=== PATIENT | male | born 1980 | race Caucasian/White ===

== ENCOUNTER → 2024-07-05 | Outpatient (CLI) | payer SELFPAY ==
--- NOTE | 2024-07-05 16:40 | RAD_ITS ---
INDICATION: Erythematous right ring finger EXAMINATION/TECHNIQUE: X-RAY - RIGHT HAND XR Fingers 3 VIEWS COMPARISON: FINDINGS: SOFT TISSUES: There is soft tissue swelling of fourth finger. No radiopaque foreign body. BONES/JOINTS: No acute fracture or subluxation.. Normal alignment. Narrowing at the distal interphalangeal joint.. No sclerotic or destructive changes observed. RAD/Finger(s) Min 2 Views IMPRESSION: Narrowing at the distal interphalangeal joint of fourth finger with soft tissue edema. Electronically Signed: Charles Wang DO at 17:11 EDT Reading Location ID and State: [facility] / [place] Tel [phone], Service support ,
== END | disposition home or self-care (01) ==
PROVIDERS: PCP Family Medicine; Referring Provider Physician Assistant Surgical; Visit Provider Physician Assistant Surgical
DX: S69.91XA Unspecified injury of right wrist, hand and finger(s), initial encounter (principal); X58.XXXA Exposure to other specified factors, initial encounter
CPT/HCPCS: 73140

== ENCOUNTER → 2025-08-12 | Outpatient (CLI) | payer SELFPAY ==
--- OUTSIDE RECORDS SUMMARY | 2025-08-12 16:39 | XMS RPT_ITS | CCD ---
Author Organization [facility] Care Team Providers Care Insurance Verification Representative Name Role Phone Zhang SAENZ, Corbin Crisostomo Unavailable Corbin Holcomb MD Unavailable Clif CHIRINOSN, Kiersten Unavailable Cassidy COSBY, Wes Duarte Unavailable Adrian SANIPRACTIC PHYSICIAN, Laura Unavailable Unavailable Martjeni SANIPRACTIC PHYSICIAN, Cherry Unavailable Unavailable David Brady Attending Unavailable David Brady Referring Unavailable Corbin Holcomb Primary Care Unavailable David Brady Attending Unavailable Problems Active Problems Problem Classification Problem Date Documented Da te Episodic/Chronic Influenza (4 sources) Influenza due to Influenza B virus; Translations: [Influenza due to other identified influenza virus with other respiratory manifestations] 11-24-2023 Episodic Other connective tissue disease (6 sources) Muscle pain; Translations: [Myalgia, unspecified site] 11-24-2023 Episodic Other injuries and conditions due to external causes (1 source) Unspecified injury of right wrist, hand and finger(s), initial encounter; Translations: [Unspecified injury of right wrist, hand and finger(s), initial encounter] Onset: 07-29-2024 Episodic Other lower respiratory disease (6 sources) Cough; Translations: [Cough] 11-24-2023 Episodic Other upper respiratory disease (6 sources) Sinusitis; Translations: [Allergic rhinitis, unspecified] 07-14-2022 Chronic Other upper respiratory disease (6 sources) Seasonal allergic rhinitis; Translations: [Other seasonal allergic rhinitis] 07-14-2022 Chronic Viral infection (6 sources) Disease caused by 2019-nCoV; Translations: [COVID-19] 11-24-2023 Episodic Past or Other Problems Problem Classification Problem Date Documented Da te Episodic/Chronic Unclassified (3 sources) Cold Symptoms - Symptoms include nasal congestion, runny nose, ear pain, scratchy throat, dry cough, productive cough, fever (highest 103 felicita nightlast night 102), chills, general malaise and headache. The onset was gradual 6 day(s) ago. The symptoms occur constantly. The patient describes this as moderate in severity and unchanged. Current treatment includes non-prescription cold medication (nyquil), acetaminophen and NSAIDs (during the night 2-3 am). Risk factors do not include smoking. The patient has been exposed to an individual with an upper respiratory infection (son was sick last week). Patient denies history of seasonal allergies, recurrent sinusitis, recurrent strep pharyngitis, asthma, tonsillectomy or recurrent ear infections. 11-24-2023 Unclassified (3 sources) Cold Symptoms - Symptoms include sneezing, nasal congestion, runny nose, ear pain, ear fullness, sore throat, productive cough, fever (100), chills and general malaise, but do not include non-purulent sputum, purulent discharge, scratchy throat, hoarseness, dry cough, wheezing, headache or facial pain. The onset was gradual 4 day(s) ago. The symptoms occur constantly. The patient describes this as moderate in severity and worsening. Current treatment includes NSAIDs. Risk factors do not include child in daycare or smoking. The patient has not been exposed to an individual with a cough, an individual with an upper respiratory infection, an individual with similar symptoms, an individual with strep or secondhand smoke. Patient denies history of seasonal allergies, recurrent sinusitis, recurrent strep pharyngitis, asthma, tonsillectomy or recurrent ear infections. 07-14-2022 Unclassified (3 sources) Headache - The onset of the headache has been sudden and has been occurring in a persistent pattern for 6 days. The course has been recurrent. The headache is characterized as moderate. The headache is described as being located in the temporal area (right sided). The symptoms are aggravated by tension/nervous strain, but not by fatigue, pressure over temporal arteries or reading. There has been no associated blurring of vision, confusion, ear pain, eye congestion, fever or flashing lights. 02-15-2016 Results Test Name Value Interpretation Reference Range Facility Finger(s) Min 2 Viewson 06-23 Finger(s) Min 2 Views [facility] [address] [place], [place] [id number] Finger(s) Min 2 Views MR#: [id number] Acct: [id number] Name: NATTY DALY Rep #: [id number] : 1980 M 44 From: Charles Wang DO PCP: Dr. Corbin Holcomb MD Status: REG CLI Study: Finger(s) Min 2 Views Date of Exam: 07/05/24 Exam# [id number] Ordering Dr: David Granados [place] [id number] INDICATION: Erythematous right ring finger EXAMINATION/TECHNIQU E: X-RAY - RIGHT HAND XR Fingers 3 VIEWS COMPARISON: ____ FINDINGS: SOFT TISSUES: There is soft tissue swelling of fourth finger. No radiopaque foreign body. BONES/JOINTS: No acute fracture or subluxation.. Normal alignment. Narrowing at the distal interphalangeal joint.. No sclerotic or destructive changes observed. RAD/Finger(s) Min 2 Views IMPRESSION: Narrowing at the distal interphalangeal joint of fourth finger with soft tissue edema. Electronically Signed: Charles Wang DO at 17:11 EDT Reading Location ID and State: [address] [place] [address] Tel [phone], Service support , CC: ARTHUR Sweeney; Dr. Corbin Holcomb MD Security Threat Analyst: Signed Normal [facility] Urgent Care Visit Reporton 0 07-05-2024 Urgent Care Visit Report [facility] [address], [address] [place] [address] OFFICE VISIT Date of Service: 07/05/24 MR#: [id number] Acct: [id number] Name: NATTY DALY Rep #: [id number] : 1980 Provider: ARTHUR Sweeney Age/Sex: 44/M Location: [facility] Status: Signed Intake Vital Signs 07/05/24 16:11 Height 5 ft 9 in Weight: 188 lb 2 oz BMI 27.8 BP 104/64 Blood Pressure Location Lt brachial Position Sitting Respiration 15 Pulse 60 Pulse Source NIBP Temp 98.4 F Temp Source Temporal Pulse Oximetry (%) 98 Oxygen Delivery Method room air Intake Visit Reasons: RED R 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 denies injury/bite/puncture /drainage. entire 4th finger purple and slightly swollen. full ROM with "tightness". hx old injury to same finger requiring fusion but pt states prior to 2 days ago had normal coloring/size etc. PFSH Medical History (Updated 07/05/24 @ 16:58 by ARTHUR Matute) Partial traumatic amputation of finger through phalanx Environmental allergies Surgical History (Updated 07/05/24 @ 16:15 by Yamilex Plummer) History of hand surgery Social History (Updated 07/05/24 @ 16:15 by Yamilex Plummer) Smoking Status: Never smoker alcohol intake: never substance use type: does not use HPI HPI Chief Complaint: right 4th finger Details: NATTY DALY, is a 44 M who presents to the office today for concern of possible infection to the right ring finger. Patient states that over the past several days he has had discoloration of the right ring finger despite having no known injuries. Patient does have a remote injury to the right little, ring and little fingers with amputation of the right little finger beyond the DIP and most of the right ring finger nailbed missing. He does have a fusion of the DIP on the right ring finger. He states examining his finger looking for a splinter however has not found anything abnormal other than the discoloration. He notes no current pain however does state that when he first noticed the discoloration he had some minor pain around the DIP joint. No fever, chills, sweats. No nausea, vomiting, diarrhea. No other associated symptoms or alleviating/aggravat ing factors. ROS Const Constitutional: No other (6 system ROS completed with pertinent findings in the HPI otherwise normal.) Exam Const General: cooperative and healthy appearing Skin General: no rashes or lesions noted Neuro General: patient alert Extrem General: capillary refill normal Other: Discoloration of right ring finger appears to be somewhat more brown on the dorsal aspect with no specific erythema, warmth or soft tissue swelling. Appropriate capillary refill and sensation to light touch distally. Patient is missing most of his nailbed along with missing a portion of his right little finger beyond the DIP. No extending erythema or lymphadenopathy. Psych Appearance: grossly normal Mental Status: mental status grossly normal Coding Level of Care Code Off vis,new,level 2 Diagnoses Injury of right ring finger S69.91XA Superficial injury of right ring finger with infection S60.944A; L08.9 Assessment and Plan Assessment and Plan (1) Injury of right ring finger: Status: Acute (2) Superficial injury of right ring finger with infection: Status: Acute Orders: Orders Finger(s) Min 2 Views Today S69.91XA - Unspecified injury of right wrist, hand and finger(s), initial encounter Plan X-ray of the right ring finger read and interpreted by myself and no acute osseous abnormalities or signs of osteomyelitis. Awaiting radiology interpretation at time of patient discharge. Bactrim as prescribed today. Encouraged to get plenty of rest, drink lots of clear liquids, and use Tylenol or Ibuprofen (unless contraindicated) for fever and comfort. Patient also educated on other symptomatic management techniques. To be seen in 7-10 days with orthopedics if no improvement; sooner if worsening of symptoms. Patient advised of potential red flags and when appropriate to report to the ED. Patient verbalized understanding and agreement with all the above. Clinical Quality Measures Falls Risk Screening/Assistive Devices Have you fallen in the past year?: No 07/05/24 170 Date David Dowling Signature: Date (if appli (more content not included)... Normal [facility] Laboratory - Microbiology an d Antimicrobial susceptibilityon 11-24-2023 FLUAV Ag IA Ql (Throat) Positive Abnormal [employer], [employer]. FLUAV Ag IA Ql (Throat) Negative Normal [employer], [employer]. SARS-CoV-2 (COVID-19) RNA ALKA+probe Ql (Unsp spec) Negative Normal [employer], [employer]. Laboratory - Microbiology an d Antimicrobial susceptibilityon 07-14-2022 FLUAV Ag IA Ql (Throat) Negative Normal [place] [employer] SARS-CoV-2 (COVID-19) RNA ALKA+probe Ql (Unsp spec) Positive Normal [employer], [employer]. Laboratory - Hematology and Cell countson 07-12-2018 Basophils (Bld) [#/Vol] 10 {Cells}/uL Normal 0 - 200 {Cells}/uL [place] [employer], [employer]. Basophils/100 WBC (Bld) 0 % Normal 0 - 1 % [place] [employer] Eosinophils (Bld) [#/Vol] 50 {Cells}/uL Normal 15 - 500 {Cells}/uL [place] [employer], [employer].; [employer], [employer]. Eosinophils/100 WBC (Bld) 1 % Normal 0 - 4 % [place] [employer], [employer]. Erythrocyte distribution width (RBC) [Ratio] 13.6 % Normal 11.0 - 15.0 % [employer], [employer].; [employer] ESR (Bld) [Velocity] 6 mm/h Normal 0 - 15 mm/h [facility] [employer], [employer].; [employer] Hematocrit (Bld) [Volume fraction] 34.9 % Abnormal 38.5 - 50.0 % [place] [employer] Hemoglobin (Bld) [Mass/Vol] 12.7 g/dL Abnormal 13.2 - 17.1 g/dL [facility], [facility].; [place] [employer], [facility]. Lymphocytes (Bld) [#/Vol] 1590 {Cells}/uL Normal 850 - 3900 {Cells}/uL [facility], [facility].; [facility] [employer] Lymphocytes/100 WBC (Bld) 47 % Normal 12 - 47 % [facility], [facility].; [facility], [facility]. MCH (RBC) [Entitic mass] 33.7 pg Abnormal 27.0 - 33.0 PG [facility], [facility].; [place] [employer], [facility]. MCHC (RBC) [Mass/Vol] 36.3 g/dL Abnormal 32.0 - 36.0 g/dL [facility], [facility].; [place] [employer] MCV (RBC) [Entitic vol] 92.9 fL Normal 80.0 - 100.0 fL [facility], [facility].; [facility], [facility]. Monocytes (Bld) [#/Vol] 310 {Cells}/uL Normal 200 - 950 {Cells}/uL [facility], [facility].; [place] [employer] Monocytes/100 WBC (Bld) 9 % Normal 4 - 12 % [facility], [facility].; [place] [employer] Neutrophils (Bld) [#/Vol] 1490 {Cells}/uL Abnormal 1500 - 7800 {Cells}/uL [facility] [employer] [place] [employer] Neutrophils/100 WBC (Bld) 43 % Normal 40 - 75 % [facility], [facility].; [place] [employer] Platelet mean volume (Bld) [Entitic vol] 10.6 fL Normal 7.5 - 12.5 fL [facility], [facility].; [place] [employer] Platelets (Bld) [#/Vol] 121 10*3/uL Abnormal 140 - 400 10*3/uL [facility] [employer] [place] [employer] RBC (Bld) [#/Vol] 3.76 10*6/uL Abnormal 4.20 - 5.8 0 10*6/uL [facility] [employer] [place] [employer] WBC (Bld) [#/Vol] 3.5 10*3/uL Abnormal 3.8 - 10.8 10*3/uL [facility].; [facility], [facility] Vital Signs Date Time Vital Sign Value Performing Clinician Facility 11-24-2023 09:07-0500 Body height 175.26 cm Laura Campbell LPN [facility], [facility].; [facility]. 11-24-2023 09:07-0500 Body mass index (BMI) [Ratio] 27.02 kg/m2 Laura Campbell LPN [facility].; [facility], [facility]. 11-24-2023 09:07-0500 Body surface area Derived from formula 1.99 m2 Laura Campbell LPN [facility], [facility].; [facility], [facility]. 11-24-2023 09:07-0500 Body temperature 101.1 [degF] Laura Campbell LPN [facility], [facility].; [place] [employer] [facility], [facility]. Comment on above: Method: Tympanic 11-24-2023 09:07-0500 Body weight 83.01 kg Laura Campbell LPN [facility].; [place] [employer], [facility]. 11-24-2023 09:07-0500 Diastolic blood pressure 68 mm[Hg] Laura Campbell LPN [facility].; [facility], [facility]. Comment on above: Patient Position: Sitting; Cuff Location : Left Arm; Cuff Size: Standard 11-24-2023 09:07-0500 Heart rate 97 /min Laura Campbell LPN [facility].; [facility], [facility]. Comment on above: Pattern: Regular 11-24-2023 09:07-0500 Inhaled oxygen concentration 20 % Laura Campbell LPN [facility], [facility].; [place] [facility]. Comment on above: Room air 11-24-2023 09:07-0500 Inhaled oxygen concentration 21 % Laura Campbell LPN [facility].; [place] [employer], [employer]. Comment on above: Room air 11-24-2023 09:07-0500 SaO2% (BldA) [Mass fraction] 96 % Laura Campbell LPN [facility].; [place] [facility]. 11-24-2023 09:07-0500 Systolic blood pressure 110 mm[Hg] Laura Campbell LPN [facility], [facility].; [place] [facility]. Comment on above: Patient Position: Sitting; Cuff Location : Left Arm; Cuff Size: Standard 07-14-2022 14:46-0400 Body height 175.26 cm Cherry Rodriguez [facility] [place], [facility].; [facility], [employer] 07-14-2022 14:46-0400 Body mass index (BMI) [Ratio] 25.55 kg/m2 Cherry Browns[place]jeni [facility], [facility].; [place] [facility], [facility]. 07-14-2022 14:46-0400 Body surface area Derived from formula 1.94 m2 Cherry [place]jeni [facility] [place], [facility].; [facility], [employer] 07-14-2022 14:46-0400 Body temperature 97.9 [degF] Cherrymary Rodriguez [facility], [facility].; [place] [employer], [employer]. Comment on above: Method: Tympanic 07-14-2022 14:46-0400 Body weight 78.47 kg Cherry Browns[place]jeni [facility], [facility].; [place] [facility], Inc[employer] 07-14-2022 14:46-0400 Diastolic blood pressure 68 mm[Hg] Cherry Rodriguez LPN [facility], [facility].; [place] [employer], [employer]. Comment on above: Patient Position: Sitting; Cuff Location : Left Arm; Cuff Size: Standard 07-14-2022 14:46-0400 Heart rate 74 /min Cherrymary Rodriguez SANIPRACTIC PHYSICIAN [facility], [facility].; [place] [employer]. Comment on above: Pattern: Regular 07-14-2022 14:46-0400 Systolic blood pressure 101 mm[Hg] Cherrymary Rodriguez [facility], [facility].; [place] [employer], [employer]. Comment on above: Patient Position: Sitting; Cuff Location : Left Arm; Cuff Size: Standard 02-15-2016 13:12-0400 Body height 175.26 cm Kiersten Menezes LPN Work Phone: [facility].; [email or web address]. 02-15-2016 13:12-0400 Body mass index (BMI) [Ratio] 27.47 kg/m2 Kiersten Clif LPN Work Phone: [email or web address] 02-15-2016 13:12-0400 Body surface area Derived from formula 2 m2 Kiersten Clif LPN Work Phone: [email or web address]. 02-15-2016 13:12-0400 Body weight 84.37 kg Kiersten Clif LPN Work Phone: [email or web address]. 02-15-2016 13:12-0400 Diastolic blood pressure 82 mm[Hg] Kiersten Menezes LPN Work Phone: [email or web address]. Comment on above: Patient Position: Sitting; Cuff Location : Left Arm; Cuff Size: Large 02-15-2016 13:12-0400 Heart rate 92 /min Kiersten Clif LPN Work Phone: [employer]; [email or web address]. Comment on above: Pattern: Regular 02-15-2016 13:12-0400 Systolic blood pressure 132 mm[Hg] Kiersten Menezes LPN Work Phone: [employer]; [email or web address]. Comment on above: Patient Position: Sitting; Cuff Location : Left Arm; Cuff Size: Large Encounters Encounter Date Encounter Type Care Provider Facility Start: 07-05-2024 End: 07-05-2024 ambulatory David GIBSON Facility:[facility] Start: 07-05-2024 End: 07-05-2024 ambulatory David GIBSON Facility:[facility] Start: 11-24-2023 End: 11-24-2023 Office outpatient visit 10 minutes Corbin Holcomb MD Work Phone: [employer] Start: 11-24-2023 Review Corbin courtney MD Work Phone: [employer] Start: 07-14-2022 End: 07-14-2022 Office outpatient visit 15 minutes Corbin Holcomb MD Work Phone: [employer] Start: 07-12-2018 End: 07-12-2018 Orders Corbin Holcomb MD Work Phone: [employer] Start: 03-28-2017 End: 03-29-2017 Orders Corbin Holcomb MD Work Phone: [employer] Start: 02-15-2016 End: 02-15-2016 Patient encounter procedure Corbin Holcomb MD Work Phone: [employer] Procedures Date Procedure Procedure Detail Performing Clinician Start: 03-28-2017 End: 03-28-2017 Triamcinolone acet inj NOS Corbin mobley MD Work Phone: Plan of Treatment Date Care Activity Detail Author Start: 11-24-2023 Covid-19 / Flu A&B, Rapid (07025,97304) Covid-19 / Flu A&B, Rapid (63948,51570) Start: 24-Nov-2023 9:34 Request [employer]; [employer] Immunizations Immunization Date Immunization Notes Care Provider Beatriz henry 03-14-2014 measles, mumps and rubella virus vaccine Corbin Holcomb MD Work Phone: [employer]; [employer] Payers Date Payer Category Payer Self-pay 2024 Unknown [id number] Unknown [id number] Unknown [id number] Social History Date Type Detail Facility Spouse Spouse [employer]; [email or web address]. Tobacco Use: Tobacco Use: ; Never smoker. [email or web address]. Male [employer] Work Phone: Never smoked tobacco [facility].; [facility] Work Phone: Family History No Family History Records Found Breast Cancer Status:Active Comments:Mother. Father Status:Active Comments:In good health. Mother Status:Active Comments:In good health. Thyroid Cancer Status:Active Comments:Father. Breast Cancer Status:Active Comments:Mother. Father Status:Active Comments:In good health. Mother Status:Active Comments:In good health. Thyroid Cancer Status:Active Comments:Father. Breast Cancer Status:Active Comments:Mother. Father Status:Active Comments:In good health. Mother Status:Active Comments:In good health. Thyroid Cancer Status:Active Comments:Father. Summary Purpose Advance Directives No Advanced Directives Records Found Additional Source Comments (unrecognized sect ion and content) No Status Records Found INFORMATION SOURCE (unrecogn ized section and content) DATE CREATED AUTHOR 07/31/2024 [facility] FOR RECORDS PERTAINING TO PATIENTS WHO ARE OR HAVE BEEN ENROLLED IN A CHEMICAL DEPENDENCY/SUBSTANCEABUSE PROGRAM, SOME INFORMATION MAY BE OMITTED. This clinical summary was aggregated from multiple sources. Caution should be exercised in using it in the provision of clinical care. This summary normalizes information from multiple sources, and as a consequence, information in this document may materially change the coding, format and clinical context of patient data. In addition, data may be omitted in some cases. CLINICAL DECISIONS SHOULD BE BASED ON THE PRIMARY CLINICAL RECORDS. [employer] [facility]. provides no warranty or guarantee of the accuracy or completeness of information in this document.
== END | disposition home or self-care (01) ==
LOC: LABSPEC 16:18
PROVIDERS: PCP Family Medicine; Visit Provider Surgery
DX: Z01.818 Encounter for other preprocedural examination (principal)
CPT/HCPCS: 87081

== ENCOUNTER → 2025-08-13 | Outpatient (CLI) | payer SELFPAY ==
--- OUTSIDE RECORDS SUMMARY | 2025-08-13 11:10 | XMS RPT_ITS | CCD ---
Author Organization [facility] Care Team Providers Care Transporter Driver Name Role Phone Zhang SANEZ, Corbin Crisostomo Unavailable Corbin Holcomb MD Unavailable [phone] Clif CHIRINOSN, Kiersten Unavailable Cassidy COSBY, Wes Duarte Unavailable Adrian ROAD CUTTER, Laura Unavailable Unavailable Martjeni ROAD CUTTER, Cherry Unavailable Unavailable David Brady Attending Unavailable [...] 2 Viewson 06-23 Finger(s) Min 2 Views [facility] Imaging Services [address] [place], [place] [address] Finger(s) Min 2 Views MR#: [id number] Acct: [id number] Name: NATTY DALY Rep #: [id number] : 1980 M 44 From: Charles Wang DO PCP: Dr. Corbin Holcomb MD Status: REG CLI Study: Finger(s) Min 2 Views Date of Exam: 07/05/24 Exam# [id number] Ordering Dr: David Granados [place] [id number] INDICATION: Erythematous right ring finger EXAMINATION/TECHNIQU E: [...] 17:11 EDT Reading Location ID and State: [address] [place] [address] Tel [phone], Service support , CC: ARTHUR Sweeney; Dr. Corbin Holcomb MD [employer] Ass[employer]ner: Signed Normal [facility] Urgent Care Visit Reporton 0 07-05-2024 Urgent Care Visit Report [facility] [address], [address] [place] [address] OFFICE VISIT Date of Service: 07/05/24 MR#: [id number] Acct: [id number] Name: NATTY DALY Rep #: [id number] : 1980 Provider: ARTHUR Sweeney Age/Sex: 44/M Location: [facility] Status: Signed Intake Vital Signs 07/05/24 16:11 Height 5 ft 9 in Weight: 188 lb 2 oz BMI 27.8 BP 104/64 Blood Pressure Location Lt brachial Position Sitting Respiration 15 Pulse 60 Pulse Source NIBP Temp 98.4 F Temp Source Temporal Pulse Oximetry (%) 98 Oxygen Delivery Method room air Intake Visit Reasons: RED R RING FINGER Chief Complaint: right 4th finger Security Systems Specialist Required: No Is patient in pain?: No [...] fallen in the past year?: No 07/05/24 1705 Date David Dowling Signature: Date (if appli (more content not included)... Normal [facility] Laboratory - Microbiology an d Antimicrobial susceptibilityon 11-24-2023 FLUAV Ag IA Ql (Throat) Positive Abnormal [employer], [employer]. FLUAV Ag IA Ql (Throat) Negative Normal [employer], [employer]. SARS-CoV-2 (COVID-19) RNA ALKA+probe Ql (Unsp spec) Negative Normal [employer], [employer]. Laboratory - Microbiology an d Antimicrobial susceptibilityon 07-14-2022 FLUAV Ag IA Ql (Throat) Negative Normal [employer] SARS-CoV-2 (COVID-19) RNA ALKA+probe Ql (Unsp spec) Positive Normal [employer], [employer]. Laboratory - Hematology and Cell countson 07-12-2018 Basophils (Bld) [#/Vol] 10 {Cells}/uL Normal 0 - 200 {Cells}/uL [employer], [employer]. Basophils/100 WBC (Bld) 0 % Normal 0 - 1 % [employer] Eosinophils (Bld) [#/Vol] 50 {Cells}/uL Normal 15 - 500 {Cells}/uL [employer], [employer].; [employer], [employer]. Eosinophils/100 WBC (Bld) 1 % Normal 0 - 4 % [employer], [employer]. Erythrocyte distribution width (RBC) [Ratio] 13.6 % Normal 11.0 - 15.0 % [employer], [employer] ESR (Bld) [Velocity] 6 mm/h Normal 0 - 15 mm/h [facility] [employer], [employer].; [employer] Hematocrit (Bld) [Volume fraction] 34.9 % Abnormal 38.5 - 50.0 % [employer] Hemoglobin (Bld) [Mass/Vol] 12.7 g/dL Abnormal 13.2 - 17.1 g/dL [facility], [facility].; [employer], [facility]. Lymphocytes (Bld) [#/Vol] 1590 {Cells}/uL Normal 850 - 3900 {Cells}/uL [facility], [facility].; [facility] [employer] Lymphocytes/100 WBC (Bld) 47 % Normal 12 - 47 % [facility], [facility].; [facility], [facility]. MCH (RBC) [Entitic mass] 33.7 pg Abnormal 27.0 - 33.0 PG [facility], [facility].; [employer], [facility]. MCHC (RBC) [Mass/Vol] 36.3 g/dL Abnormal 32.0 - 36.0 g/dL [facility], [facility].; [employer] MCV (RBC) [Entitic vol] 92.9 fL Normal 80.0 - 100.0 fL [facility], [facility].; [facility], [facility]. Monocytes (Bld) [#/Vol] 310 {Cells}/uL Normal 200 - 950 {Cells}/uL [facility], [facility].; [employer] Monocytes/100 WBC (Bld) 9 % Normal 4 - 12 % [facility], [facility].; [employer] Neutrophils (Bld) [#/Vol] 1490 {Cells}/uL Abnormal 1500 - 7800 {Cells}/uL [facility] [employer] Neutrophils/100 WBC (Bld) 43 % Normal 40 - 75 % [facility], [facility].; [employer] Platelet mean volume (Bld) [Entitic vol] 10.6 fL Normal 7.5 - 12.5 fL [facility], [facility].; [employer] Platelets (Bld) [#/Vol] 121 10*3/uL Abnormal 140 - 400 10*3/uL [facility] [employer] RBC (Bld) [#/Vol] 3.76 10*6/uL Abnormal 4.20 - 5.8 0 10*6/uL [facility] [employer] WBC (Bld) [#/Vol] 3.5 10*3/uL Abnormal 3.8 - 10.8 10*3/uL [facility].; [facility], [facility] Vital Signs Date Time Vital Sign Value Performing Clinician Facility 11-24-2023 09:07-0500 Body height 175.26 cm Laura Campbell LPN [facility], [facility].; [facility]. 11-24-2023 09:07-0500 Body mass index (BMI) [Ratio] 27.02 kg/m2 Laura Campbell LPN [facility].; [facility], [facility]. 11-24-2023 09:07-0500 Body surface area Derived from formula 1.99 m2 Laura Campbell LPN [facility], [facility].; [facility], [facility]. 11-24-2023 09:07-0500 Body temperature 101.1 [degF] Laura Campbell LPN [facility], [facility].; [facility] [employer] [facility], [facility]. Comment on above: Method: Tympanic 11-24-2023 09:07-0500 Body weight 83.01 kg Laura Campbell LPN [facility].; [facility] [employer] [facility], [facility]. 11-24-2023 09:07-0500 Diastolic blood pressure 68 mm[Hg] Laura Campbell LPN [facility].; [facility], [facility]. Comment on above: Patient Position: Sitting; Cuff Location : Left Arm; Cuff Size: Standard 11-24-2023 09:07-0500 Heart rate 97 /min Laura Campbell LPN [facility].; [facility], [facility]. Comment on above: Pattern: Regular 11-24-2023 09:07-0500 Inhaled oxygen concentration 20 % Laura Campbell LPN [facility], [facility].; [facility] [employer] [facility]. Comment on above: Room air 11-24-2023 09:07-0500 Inhaled oxygen concentration 21 % Laura Campbell LPN [facility].; [facility] [employer], [employer]. Comment on above: Room air 11-24-2023 09:07-0500 SaO2% (BldA) [Mass fraction] 96 % Laura Campbell LPN [facility].; [facility] [employer] [facility]. 11-24-2023 09:07-0500 Systolic blood pressure 110 mm[Hg] Laura Campbell LPN [facility], [facility].; [facility] [employer] [facility]. Comment on above: Patient Position: Sitting; Cuff Location : Left Arm; Cuff Size: Standard 07-14-2022 14:46-0400 Body height 175.26 cm Cherry Rodriguez [facility], [facility].; [facility], Inc[employer] 07-14-2022 14:46-0400 Body mass index (BMI) [Ratio] 25.55 kg/m2 Cherry Struthersjeni [facility], [facility].; [facility] [employer] [facility], [facility]. 07-14-2022 14:46-0400 Body surface area Derived from formula 1.94 m2 Cherry Struthersjeni [facility], [facility].; [facility], [employer] 07-14-2022 14:46-0400 Body temperature 97.9 [degF] Cherrymary Rodriguez [facility], [facility].; [employer], [employer]. Comment on above: Method: Tympanic 07-14-2022 14:46-0400 Body weight 78.47 kg Cherry Struthersjeni [facility], [facility].; [facility] [employer] [facility], Inc[employer] 07-14-2022 14:46-0400 Diastolic blood pressure 68 mm[Hg] Cherry Rodriguez LPN [facility], [facility].; [employer], [employer]. Comment on above: Patient Position: Sitting; Cuff Location : Left Arm; Cuff Size: Standard 07-14-2022 14:46-0400 Heart rate 74 /min Cherrymary Rodriguez ROAD CUTTER [facility], [facility].; [employer] Comment on above: Pattern: Regular 07-14-2022 14:46-0400 Systolic blood pressure 101 mm[Hg] Cherrymary Rodriguez [facility], [facility].; [employer], [employer]. Comment on above: Patient Position: Sitting; Cuff Location : Left Arm; Cuff Size: Standard 02-15-2016 13:12-0400 Body height 175.26 cm Kiersten Menezes LPN Work Phone: [facility].; [employer]. 02-15-2016 13:12-0400 Body mass index (BMI) [Ratio] 27.47 kg/m2 Kiersten Clif LPN Work Phone: [place].; [employer]. 02-15-2016 13:12-0400 Body surface area Derived from formula 2 m2 Kiersten Clif LPN Work Phone: [employer].; [employer]. 02-15-2016 13:12-0400 Body weight 84.37 kg Kiersten Clif LPN Work Phone: [employer].; [employer]. 02-15-2016 13:12-0400 Diastolic blood pressure 82 mm[Hg] Kiersten Menezes LPN Work Phone: [employer].; [employer]. Comment on above: Patient Position: Sitting; Cuff Location : Left Arm; Cuff Size: Large 02-15-2016 13:12-0400 Heart rate 92 /min Kiersten Clif LPN Work Phone: [facility]; [place]. Comment on above: Pattern: Regular 02-15-2016 13:12-0400 Systolic blood pressure 132 mm[Hg] Kiersten Menezes LPN Work Phone: [facility]; [place]. Comment on above: Patient Position: Sitting; Cuff Location : Left Arm; Cuff Size: Large Encounters Encounter Date Encounter Type Care Provider Facility Start: 07-05-2024 End: 07-05-2024 ambulatory David GIBSON Facility:[facility] Start: 07-05-2024 End: 07-05-2024 ambulatory David GIBSON Facility:[facility] Start: 11-24-2023 End: 11-24-2023 Office outpatient visit 10 minutes Corbin Holcomb MD Work Phone: [facility] Start: 11-24-2023 Review Corbin courtney MD Work Phone: [facility] Start: 07-14-2022 End: 07-14-2022 Office outpatient visit 15 minutes Corbin Holcomb MD Work Phone: [facility] Start: 07-12-2018 End: 07-12-2018 Orders Corbin Holcomb MD Work Phone: [facility] Start: 03-28-2017 End: 03-29-2017 Orders Corbin Holcomb MD Work Phone: [facility] Start: 02-15-2016 End: 02-15-2016 Patient encounter procedure Corbin Holcomb MD Work Phone: [facility] Procedures Date Procedure Procedure Detail Performing Clinician Start: 03-28-2017 End: 03-28-2017 Triamcinolone acet inj NOS Corbin mobley MD Work Phone: Plan of Treatment Date Care Activity Detail Author Start: 11-24-2023 Covid-19 / Flu A&B, Rapid ([id number]) Covid-19 / Flu A&B, Rapid ([id number]) Start: 24-Nov-2023 9:34 Request eleni; eleni Immunizations Immunization Date Immunization Notes Care Provider Beatriz henry 03-14-2014 measles, mumps and rubella virus vaccine Corbin Holcomb MD Work Phone: [facility]; [facility] Payers Date Payer Category Payer Self-pay 2024 Unknown [id number] Unknown [id number] Unknown [id number] Social History Date Type Detail Facility Spouse Spouse [employer]; [place]. Tobacco Use: Tobacco Use: ; Never smoker. [place].; [place]. Male [employer] [facility] Work Phone: Never smoked tobacco [facility] Work Phone: Family History No Family History [...] section and content) DATE CREATED AUTHOR 07/31/2024 [facility] FOR RECORDS PERTAINING TO PATIENTS WHO ARE [...] BE BASED ON THE PRIMARY CLINICAL RECORDS. [employer] [facility]. provides no warranty or guarantee of the accuracy or completeness of information in this document.
== END | disposition home or self-care (01) ==
LOC: LABSPEC 10:49
PROVIDERS: PCP Family Medicine; Referring Provider Surgery; Visit Provider Surgery
DX: Z01.818 Encounter for other preprocedural examination (principal)

== ENCOUNTER 2025-10-09 06:01 | Day surgery (SDC) | payer SELFPAY ==
[2025-10-09] VITALS (10 sets, daily range): BP systolic 103–116; BP diastolic 65–81; PULSE 47–64; RESP 14–18; TEMP 36.1–36.4; O2SAT 94–99; BMI 25.9
--- OUTSIDE RECORDS SUMMARY | 2025-10-09 06:04 | XMS RPT_ITS | CCD ---
Author Organization [facility] Care Team Providers Care Zookeeper Name Role Phone Zhang SAENZ, Corbin Crisostomo Unavailable [phone] Corbin Holcomb MD Unavailable Clif SEWER AND DRAIN TECHNICIAN, Kiersten Unavailable Cassidy COSBY, Wes Duarte Unavailable Adrian SEWER AND DRAIN TECHNICIAN, Laura Unavailable Unavailable Jennifer CHIRINOSN, Cherry Unavailable Unavailable Curtis Gifford Attending Unavailable Zhang, Corbin Primary Care Unavailable Zhang, Corbin Primary Care Unavailable Curtis Gifford Attending Unavailable Curtis Gifford Attending Unavailable Zhang, Corbin Primary Care Unavailable Corbin Holcomb Referring Unavailable Curtis Gifford Referring Unavailable Zhang, Corbin Primary Care Unavailable Curtis Gifford Attending Unavailable Dr. Corbin Holcomb MD Primary Care Physician Dr. Corbin Holcomb MD Referring Provider Dr. Curtis Gifford MD Attending Physician Dr. Curtis Gifford MD Referring Provider Medications Current Medications Medication Drug Class(es) Dates Sig (Normalized) Sig (Original) apple cider vinegar 600 mg oral capsule (1 source) Start: 08-12-2025 Lactobacillus Combination No.4 (Probiotic) 3 billion cell capsule (1 source) Start: 08-12-2025 take 3 capsules by mouth once daily Multivitamin tablet (1 source) Start: 08-12-2025 Completed/Discontinued Medications Medication Drug Class(es) Dates Sig (Normalized) Sig (Original) sulfamethoxazole 800 mg / trimethoprim 160 mg oral tablet (1 source) Dihydrofolate Reductase Inhibitor Antibacterial, Sulfonamide Antimicrobial Start: 07-05-2024 End: 07-12-2024 Sulfamethoxazole- Trimethoprim (Bactrim Ds) 800-160 mg tablet Discontinued 1 {tbl} PO Q12H 14 7 0 July 04, 2024 11:00pm July 10, 2024 11:00pm July 11, 2024 11:05pm Problems Active Problems Problem Classification Problem Date Documented Date Episodic/Chronic Abdominal hernia (3 sources) Umbilical hernia without obstruction or gangrene; Translations: [Umbilical hernia] Onset: 08-13-2025 08-12-2025 Episodic Comment on above: - Chronic umbilical hernia, present for approximately 3 years, with recent enlargement over the past 6 months; reducible on exam with a defect measuring approximately 2 cm in width and 1.5 cm in length.- No current signs of obstruction or gangrene; mild color change noted on exam suggestive of decreased perfusion to overlying tissue.- Discussed surgical repair options, including suture repair versus mesh repair; recommended robotic transabdominal preperitoneal (SHRUTHI) mesh repair due to defect size and patient's high physical activity level to minimize recurrence risk.- Reviewed risks and benefits of mesh repair, including infection, adhesion formation, and bowel obstruction; explained that synthetic mesh is preferred over biosynthetic due to lower recurrence rates.- Discussed postoperative restrictions: no lifting for 2 weeks, then maximum 15 lbs for 5 weeks; no heavy equipment operation or strenuous activity for at least 3 weeks; encouraged ambulation to reduce risk of blood clots.- Informed patient that surgery is typically outpatient with estimated operative time of 1.5 hours; use of transverse abdominus plane block for postoperative pain control.- Nasal swab to be performed preoperatively to assess for staph colonization; if positive, will initiate 5-day decolonization protocol with special wash and intranasal ointment.- Patient expressed understanding of surgical plan, risks, and postoperative restrictions; surgery to be scheduled mid to end of September to align with patient's availability and support at home. Allergic reactions (1 source) Environmental allergy; Translations: [Other allergy status, other than to drugs and biological substances] 07-05-2024 Episodic Influenza (4 sources) Influenza due to Influenza B virus; Translations: [Influenza due to other identified influenza virus with other respiratory manifestations] 11-24-2023 Episodic Other connective tissue disease (6 sources) Muscle pain; Translations: [Myalgia, unspecified site] 11-24-2023 Episodic Other injuries and conditions due to external causes (1 source) Injury of finger of right hand; Translations: [Unspecified injury of right wrist, hand and finger(s), initial encounter] 07-05-2024 Episodic Other lower respiratory disease (6 sources) Cough; Translations: [Cough] 11-24-2023 Episodic Other upper respiratory disease (6 sources) Sinusitis; Translations: [Allergic rhinitis, unspecified] 07-14-2022 Chronic Other upper respiratory disease (6 sources) Seasonal allergic rhinitis; Translations: [Other seasonal allergic rhinitis] 07-14-2022 Chronic Superficial injury; contusion (1 source) Superficial injury of finger with infection; Translations: [Unspecified superficial injury of right ring finger, initial encounter] 07-05-2024 Episodic Viral infection (6 sources) Disease caused by [...] Results Test Name Value Interpretation Reference Range Facil ity MRSA/SAID NASAL SCREENon MRSA+SAID SCRN Negative Normal [facility] Comment on above: Performed By: #### M 100.651 #### [facility] [address] [place], [address] MRSA screenOrdered By: Mathew Gifford on 08-12-2025 MRSA DNA ALKA+probe Ql (Unsp spec) [facility] Surgery Visit Reporton 08-12 Surgery Visit Report [facility] [address] [place] [address] OFFICE VISIT Date of Service: 08/12/25 MR#: [id number] Acct: [id number] Name: NATTY DALY Rep #: [id number] : 1980 Provider: Dr. Curtis joseph MD Age/Sex: 45/M Location: [facility] Status: Signed Intake Vital Signs 07/05/24 16:11 08/12/25 15:12 Height 5 ft 9 in 5 ft 9 in Weight: 177 lb BMI 26.1 BP 124/77 H Blood Pressure Location Rt brachial Position Sitting Respiration 16 Intake Visit Reasons: SELF REFERRED HERNIA- SELF PAY Chief Complaint: umb hernia Associate Merchandise Planner Required: No Is patient in pain?: No Allergies No Known Allergies Allergy (Verified 08/12/25 15:13) Medications ???Medication ???Instructions ???Recorded ???Confirmed ???Type apple cider vinegar 600 mg capsule mg PO 08/12/25 08/12/25 History lactobacillus combination no.4 3 3,000 mmu cells PO QDAY 08/12/25 1 History billion cell capsule (Probiotic) multivitamin 1 tab PO QAM 08/12/25 08/12/25 His tory Have you fallen in the past year?: No PFSH Medical History (Updated 08/12/25 @ 16:[address] Curtis Gifford MD) Pre-op testing Partial traumatic amputation of finger through phalanx Environmental allergies Surgical History History of hand surgery Social History Smoking Status: Never smoker alcohol intake: never substance use type: does not use HPI HPI HPI: The patient is a 45-year-old male presenting for evaluation of an umbilical hernia. The patient reports noticing the hernia approximately 3 years ago, initially as a small bulge at the side of the umbilicus. Over the past 6 months, it has enlarged to fill the entire umbilicus. He denies any specific inciting event at onset and has no history of childhood hernia repair. He reports no pain, no changes in color, and no changes in bowel habits. The hernia is soft and reducible, with easier reduction in the mornings. He denies any history of staph or skin infections and has no history of tobacco use. 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 He has no prior abdominal surgeries. ROS General General: No weight change, appetite, fatigue, colon cancer, breast cancer or weakness HEENT HEENT: No difficulty swallowing, eye injury, eye surgery, swollen glands or hoarseness Endo Endocrine: No thyroid disease, diabetes mellitus, thyroid cancer, Hair loss, heat intolerance or cold intolerance Skin Skin: No rash or changing moles Breast Breast: No left breast lump, right breast lump, nipple discharge, breast pain, abnormal mammogram, abnormal US or breast enlargement Musc Musculoskeletal: No back problems, arthritis, rheumatoid arthritis, gout or joint pain Cardio Cardiovascular: No murmur, pacemaker, heart disease, atrial fibrillation, high blood pressure, heart attack, heart stent, palpitations, shortness of breath with exertion or chest pain Psych Psychiatric: No depression, anxiety or hearing voices Resp Respiratory: No shortness of breath, No sleep apnea, No cough, No COPD, No asthma, No emphysema and No wheezing Gastro Gastrointestinal: No abdominal pain, No nausea or vomiting, No diarrhea, No constipation, No blood in stool, No acid reflux, No hemorrhoids, No ulcers, No gallbladder problem and No black,tarry stools Simone Hematologic: No blood thinners, No blood disorders, No bleeding, No anemia and No blood clots Neuro Neurologic: No system reviewed and no additional complaints, except as documented, No as per HPI, No abnormal gait, No abnormal hearing, No abnormal movements, No abnormal speech, No behavioral changes, No burning sensations, No confusion, No convulsions, No disequilibrium, No dizziness, No localized weakness, No frequent falls, No headache(s), No lack of coordination, No loss of vision, No memory loss, No numbness, No other visual disturbances, No radicular pain, No restless legs, No sensory deficit, No syncope, No tingling, No tremor(s), No weakness and No other Exam Const General: cooperative Orientation: alert, awake and oriented x3 Resp Effort Inspection: normal respiratory effort GI Other: Slender, no scars, visible hernia at the umbilicus with slight purpling of the umbilical skin. Hernia contents (likely omental fat) are soft and hernia is minimally tender with traction applied. It is eventually able to be reduced to a hernia neck approximately 1.5 cm diameter. Assessment and Plan Assessment and Plan (1) Umbilical hernia without obstruction and without gangrene: Status: Acute Comment: - Chronic umbilical hernia, present for approximate (more content not included)... Normal [facility] - Microbiology an d Antimicrobial susceptibilityon 11-24-2023 FLUAV Ag IA Ql (Throat) Positive [facility] [employer] [facility] FLUAV Ag IA Ql (Throat) Negative Normal [facility].; [employer] [facility]. SARS-CoV-2 (COVID-19) RNA ALKA+probe Ql (Unsp spec) Negative Normal [facility].; [place] [employer] [facility] - Microbiology an d Antimicrobial susceptibilityon 07-14-2022 FLUAV Ag IA Ql (Throat) Negative Normal [facility]; [place] [employer] [facility] SARS-CoV-2 (COVID-19) RNA ALKA+probe Ql (Unsp spec) Positive Normal [facility]; [place] [employer] [facility] - Hematology and Cell countson 07-12-2018 Basophils (Bld) [#/Vol] 10 {Cells}/uL Normal 0 - 200 {Cells}/uL [facility]; [place] [employer] [facility] Basophils/100 WBC (Bld) 0 % Normal 0 - 1 % [facility]; [place] [employer] [facility] Eosinophils (Bld) [#/Vol] 50 {Cells}/uL Normal 15 - 500 {Cells}/uL [facility].; [place] [employer] Eosinophils/100 WBC (Bld) 1 % Normal 0 - 4 % [facility]; [place] [employer] Erythrocyte distribution width (RBC) [Ratio] 13.6 % Normal 11.0 - 15.0 % [facility]; [place] [employer], [facility]. ESR (Bld) [Velocity] 6 mm/h Normal 0 - 15 mm/h [facility]; [place] [employer] [facility], [facility] Hematocrit (Bld) [Volume fraction] 34.9 % Abnormal 38.5 - 50.0 % [facility].; [place] [employer] [facility], [facility] Hemoglobin (Bld) [Mass/Vol] 12.7 g/dL Abnormal 13.2 - 17.1 g/dL [facility].; [place] [employer] [facility], [facility] Lymphocytes (Bld) [#/Vol] 1590 {Cells}/uL Normal 850 - 3900 {Cells}/uL [facility].; [place] [employer] [facility], [facility]. Lymphocytes/100 WBC (Bld) 47 % Normal 12 - 47 % [facility], [facility].; [place] [employer], [facility] MCH (RBC) [Entitic mass] 33.7 pg Abnormal 27.0 - 33.0 PG [facility].; [place] [facility] MCHC (RBC) [Mass/Vol] 36.3 g/dL Abnormal 32.0 - 36.0 g/dL [facility], [facility].; [facility], [facility]. MCV (RBC) [Entitic vol] 92.9 fL Normal 80.0 - 100.0 fL [facility], [facility].; [facility] [employer], [facility]. Monocytes (Bld) [#/Vol] 310 {Cells}/uL Normal 200 - 950 {Cells}/uL [facility], [facility].; [facility] Monocytes/100 WBC (Bld) 9 % Normal 4 - 12 % [facility], [facility].; [facility] Neutrophils (Bld) [#/Vol] 1490 {Cells}/uL Abnormal 1500 - 7800 {Cells}/uL [facility], [facility].; [place] [employer] Neutrophils/100 WBC (Bld) 43 % Normal 40 - 75 % [facility], [facility].; [place] [employer] Platelet mean volume (Bld) [Entitic vol] 10.6 fL Normal 7.5 - 12.5 fL [facility], [facility].; [place] [employer] Platelets (Bld) [#/Vol] 121 10*3/uL Abnormal 140 - 400 10*3/uL [facility] [place] [employer] RBC (Bld) [#/Vol] 3.76 10*6/uL Abnormal 4.20 - 5.8 0 10*6/uL [facility] [place] [employer] WBC (Bld) [#/Vol] 3.5 10*3/uL Abnormal 3.8 - 10.8 10*3/uL [place] [employer], [facility].; [place] [employer], [employer]. Vital Signs Date Time Vital Sign Value Performing Clinician Facility 08-12-2025 15:12-0400 Body height 175.[address] Corbin Holcomb MD Work Phone: [facility] 08-12-2025 15:12-0400 Body mass index (BMI) [Ratio] 26.1 kg/m2 Dr. Corbin Holcomb MD Work Phone: [facility] 08-12-2025 15:12-0400 Body weight 80.[address] Corbin Holcomb MD Work Phone: [facility] 08-12-2025 15:12-0400 Diastolic blood pressure 77 mm[Hg] Dr. Corbin Holcomb MD Work Phone: [facility] 08-12-2025 15:12-0400 Respiratory rate 16 /min Dr. Corbin Holcomb MD Work Phone: [facility] 08-12-2025 15:12-0400 Systolic blood pressure 124 mm[Hg] Dr. Corbin Holcomb MD Work Phone: [facility] 11-24-2023 09:07-0500 Body height 175.26 cm Laura Campbell LPN [facility], [facility].; [facility], [facility]. 11-24-2023 09:07-0500 Body mass index (BMI) [Ratio] 27.02 kg/m2 Laura Campbell LPN [facility], [facility].; [facility], [facility]. 11-24-2023 09:07-0500 Body surface area Derived from formula 1.99 m2 Laura Campbell LPN [facility], [facility].; [facility], [facility]. 11-24-2023 09:07-0500 Body temperature 101.1 [degF] Laura Campbell LPN [facility], [facility].; [facility], [facility]. Comment on above: Method: Tympanic 11-24-2023 09:07-0500 Body weight 83.01 kg Laura Campbell LPN [facility], [facility].; [facility], [facility]. 11-24-2023 09:07-0500 Diastolic blood pressure 68 mm[Hg] Laura Campbell LPN [facility], [facility].; [facility], [facility]. Comment on above: Patient Position: Sitting; Cuff Location : Left Arm; Cuff Size: Standard 11-24-2023 09:07-0500 Heart rate 97 /min Laura Campbell LPN [facility], [facility].; [facility], [facility]. Comment on above: Pattern: Regular 11-24-2023 09:07-0500 Inhaled oxygen concentration 20 % Laura Campbell LPN [facility], [facility].; [facility], [employer]. Comment on above: Room air 11-24-2023 09:07-0500 Inhaled oxygen concentration 21 % Laura Campbell LPN [facility], [facility].; [facility], [employer]. Comment on above: Room air 11-24-2023 09:07-0500 SaO2% (BldA) [Mass fraction] 96 % Laura Campbell LPN [facility], [facility].; [facility] 11-24-2023 09:07-0500 Systolic blood pressure 110 mm[Hg] [facility].; [facility], [employer]. Comment on above: Patient Position: Sitting; Cuff Location : Left Arm; Cuff Size: Standard 07-14-2022 14:46-0400 Body height 175.26 cm Cherry Rodriguez LPN [facility], [facility].; [facility], [facility]. 07-14-2022 14:46-0400 Body mass index (BMI) [Ratio] 25.55 kg/m2 Cherry Rodriguez [facility], [facility].; [facility], [facility]. 07-14-2022 14:46-0400 Body surface area Derived from formula 1.94 m2 Cherry [facility], [facility].; [facility] 07-14-2022 14:46-0400 Body temperature 97.9 [degF] Cherrymary Rodriguez [facility], [facility].; [place] [employer] [facility], [employer]. Comment on above: Method: Tympanic 07-14-2022 14:46-0400 Body weight 78.47 kg Cherry Rodriguez LPN [facility], [facility].; [place] [employer] [facility], [employer]. 07-14-2022 14:46-0400 Diastolic blood pressure 68 mm[Hg] Cherrymary Rodriguez [facility], [facility].; [place] [employer] [facility], [employer]. Comment on above: Patient Position: Sitting; Cuff Location : Left Arm; Cuff Size: Standard 07-14-2022 14:46-0400 Heart rate 74 /min Cherry Rodriguez LPN [facility], [facility].; [employer] Comment on above: Pattern: Regular 07-14-2022 14:46-0400 Systolic blood pressure 101 mm[Hg] Cherry Rodriguez LPN [employer]; [employer]. Comment on above: Patient Position: Sitting; Cuff Location : Left Arm; Cuff Size: Standard 02-15-2016 13:12-0400 Body height 175.26 cm Kiersten Menezes SEWER AND DRAIN TECHNICIAN Work Phone: [employer]; [employer]. 02-15-2016 13:12-0400 Body mass index (BMI) [Ratio] 27.47 kg/m2 Kiersten Clif SEWER AND DRAIN TECHNICIAN Work Phone: [employer].; [employer]. 02-15-2016 13:12-0400 Body surface area Derived from formula 2 m2 Kierstenpaula Menezes SEWER AND DRAIN TECHNICIAN Work Phone: [employer].; [employer]. 02-15-2016 13:12-0400 Body weight 84.37 kg Kiersten Menezes SEWER AND DRAIN TECHNICIAN Work Phone: [employer].; [employer]. 02-15-2016 13:12-0400 Diastolic blood pressure 82 mm[Hg] Kiersten Dicksony SEWER AND DRAIN TECHNICIAN Work Phone: [employer]; [employer]. Comment on above: Patient Position: Sitting; Cuff Location : Left Arm; Cuff Size: Large 02-15-2016 13:12-0400 Heart rate 92 /min Kiersten Dicksony SEWER AND DRAIN TECHNICIAN Work Phone: [employer]. Comment on above: Pattern: Regular 02-15-2016 13:12-0400 Systolic blood pressure 132 mm[Hg] Kiersten Clif SEWER AND DRAIN TECHNICIAN Work Phone: [employer]. Comment on above: Patient Position: Sitting; Cuff Location : Left Arm; Cuff Size: Large Encounters Encounter Date Encounter Type Care Provider Facility Start: 08-19-2025 Encounter for other preprocedural examination Curtis Gifford [facility] Start: 08-13-2025 End: 08-13-[address] Curtis Gifford MD -Laboratory Specimen Work Phone: Start: 08-12-[address] Curtis Gifford MD -Laboratory Specimen Work Phone: Start: 08-12-[address] Obie Holcomb MD Work Phone: [facility] Start: 08-12-2025 End: 08-12-[address] Curtis Gifford MD -[facility] Work Phone: Start: 08-12-2025 End: 08-13-2025 [facility] Facility:[facility] Start: 11-24-2023 End: 11-24-2023 Office outpatient visit 10 minutes Corbin Holcomb MD Work Phone: [employer] Start: 11-24-2023 Review Corbin courtney MD Work Phone: [facility] Start: 07-14-2022 End: 07-14-2022 Office outpatient visit 15 minutes Corbin Holcomb MD Work Phone: [facility] Start: 07-12-2018 End: 07-12-2018 Artur Holcomb MD Work Phone: [facility] Start: 03-28-2017 End: 03-29-2017 Orders Corbin Holcomb MD Work Phone: [facility] Start: 02-15-2016 End: 02-15-2016 Patient encounter procedure Corbin Holcomb MD Work Phone: [facility] Procedures Date Procedure Procedure Detail Performing Clinician Start: 08-12-2025 Methicillin resistan t Staphylococcus aureus screening test Dr. Corbin Holcomb MD Work Phone: Start: 03-28-2017 End: 03-28-2017 Triamcinolone acet inj NOS Corbin mobley MD Work Phone: Plan of Treatment Date Care Activity Detail Author Start: 10-09-2025 ambulatory Ambulatory Facility:[facility] Start: 08-12-2025 Methicillin resistant Staphylococcus aureus screening test [facility] Start: 11-24-2023 Covid-19 / Flu A&B, Rapid (41795,10465) Covid-19 / Flu A&B, Rapid (60891,04444) Start: 24-Nov-2023 9:34 Request [employer] Immunizations Immunization Date Immunization Notes Care Provider Fa annilazara 03-14-2014 measles, mumps and rubella virus vaccine Corbin Holcomb MD Work Phone: [employer]; [employer] Payers Date Payer Category Payer Self-pay Unknown [id number] Unknown [id number] Unknown [id number] Unknown [id number] Unknown [id number] Social History Date Type Detail Facility Spouse Spouse [employer] Tobacco Use: Tobacco Use: ; N ever smoker. [employer]. Start: 1980 Male [facility] Start: 07-05-2024 Never smoked tobacco [facility] Sex Male [facility] Progress note 08-12-2025 Note Date & Type Note Facility 08-12-2025 Progress note Note Date/Time August 12, 2025 5:16pm [facility] [address] [place] [address] OFFICE VISIT Date of Service: 08/12/25 MR#: [id number] Acct: [id number] Name: NATTY DALY Rep #: [id number] : 1980 Provider: Dr. 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 Curtis Gifford MD) Pre-op testing Partial traumatic amputation of finger through phalanx Environmental allergies Surgical History History of hand surgery Social History Smoking Status: Never smoker alcohol intake: never substance use type: does not use HPI HPI HPI: The patient is a 45-year-old male presenting for evaluation of an umbilical hernia. The patient reports noticing the hernia approximately 3 years ago, initially as a small bulge at the side of the umbilicus. Over the past 6 months,it has enlarged to fill the entire umbilicus. He denies any specific inciting event at onset and has no history of childhood hernia repair. He reports no pain, no changes in color, and no changes in bowel habits. The hernia is soft and reducible, with easier reduction in the mornings. He denies any history of staph or skin infections and has no history of tobacco use. 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 He has no prior abdominal surgeries. ROS General General: No weight change, appetite, fatigue, colon cancer, breast cancer or weakness HEENT HEENT: No difficulty swallowing, eye injury, eye surgery, swollen glands or hoarseness Endo Endocrine: No thyroid disease, diabetes mellitus, thyroid cancer, Hair loss, heat intolerance or cold intolerance Skin Skin: No rash or changing moles Breast Breast: No left breast lump, right breast lump, nipple discharge, breast pain, abnormal mammogram, abnormal US or breast enlargement Musc Musculoskeletal: No back problems, arthritis, rheumatoid arthritis, gout or joint pain Cardio Cardiovascular: No murmur, pacemaker, heart disease, atrial fibrillation, high blood pressure, heart attack, heart stent, palpitations, shortness of breath with exertion or chest pain Psych Psychiatric: No depression, anxiety or hearing voices Resp Respiratory: No shortness of breath, No sleep apnea, No cough, No COPD, No asthma, No emphysema and No wheezing Gastro Gastrointestinal: No abdominal pain, No nausea or vomiting, No diarrhea, No constipation, No blood in stool, No acid reflux, No hemorrhoids, No ulcers, No gallbladder problem and No black,tarry stools Simone Hematologic: No blood thinners, No blood disorders, No bleeding, No anemia and No blood clots Neuro Neurologic: No system reviewed and no additional complaints, except as documented, No as per HPI, No abnormal gait, No abnormal hearing, No abnormal movements, No abnormal speech, No behavioral changes, No burning sensations, No confusion, No convulsions, No disequilibrium, No dizziness, No localized weakness, No frequent falls, No headache(s), No lack of coordination, No loss ofvision, No memory loss, No numbness, No other visual disturbances, No radicular pain, No restless legs, No sensory deficit, No syncope, No tingling, No tremor(s), No weakness and No other Exam Const General: cooperative Orientation: alert, awake and oriented x3 Resp Effort & Inspection: normal respiratory effort GI Other: Slender, no scars, visible hernia at the umbilicus with slight purpling of the umbilical skin. Hernia contents (likely omental fat) are soft and hernia is minimally tender with traction applied. It is eventually able to be reduced to a hernia neck approximately 1.5 cm diameter. Assessment and Plan Assessment and Plan (1) Umbilical hernia without obstruction and without gangrene: Status: Acute Comment: - Chronic umbilical hernia, present for approximately 3 years, with recent enlargement over the past 6 months; reducible on exam with a defect measuring approximately 2 cm in width and 1.5 cm in length. - No current signs of obstruction or gangrene; mild color change noted on exam suggestive of decreased perfusion to overlying tissue. - Discussed surgical repair options, including suture repair versus mesh repair;recommended robotic transabdominal preperitoneal (SHRUTHI) mesh repair due to defect size and patient's high physical activity level to minimize recurrence risk. - Reviewed risks and benefits of mesh repair, including infection, adhesion formation, and bowel obstruction; explained that synthetic mesh is preferred over biosynthetic due to lower recurrence rates. - Discussed postoperative restrictions: no lifting for 2 weeks, then maximum 15 lbs for 5 weeks; no heavy equipment operation or strenuous activity for at least3 weeks; encouraged ambulation to reduce risk of blood clots. - Informed patient that surgery is typically outpatient with estimated operativetime of 1.5 hours; use of transverse abdominus plane block for postoperative pain control. - Nasal swab to be performed preoperatively to assess for staph colonization; ifpositive, will initiate 5-day decolonization protocol with special wash and intranasal ointment. - Patient expressed understanding of surgical plan, risks, and postoperative restrictions; surgery to be scheduled mid to end of September to align with patient's availability and support at home. Plan: ? Tentatively plan for outpatient robot-assisted umbilical hernia repair with mesh early September ? Follow-up MRSA swab of nares Orders: Orders MRSA/SAID SCREEN (PRE SURG) Today Z01.818 - Encounter for other preprocedural examination Plan Details Additional Comments: Note was completed with the assistance of AI technology and ambient listening. Patient provided their consent for use of this technology during the duration oftheir visit. Provider has reviewed dictation prior to incorporation within the electronic medical record. Coding Level of Care Code Off vis,new,level 3 Diagnoses Umbilical hernia without obstruction and without gangrene K42.9 Clinical Quality Measures Falls Risk Screening/Assistive Devices Have you fallen in the past year?: No 08/12/25 1616 <Electronically signed by Curtis Gifford MD> Date _ Curtis Gifford MD Cosigner Signature: Date (if applicable) CC: ~ [facility] Work Phone: Progress note 08-12-2025 Note Date & Type Note Facility 08-12-2025 Progress note [facility] Evaluation note 08-12-2025 Note Date & Type Note Facility 08-12-2025 Evaluation note Diagnosis Onset Date Resolution Umbilical hernia without obstruction and without gangrene acute August 12 2:55pm [facility] Work Phone: Reason for referral (narrative) Note Date & Type Note Facility Reason for referral (narrative) No reason for referral information available [facility] Work Phone: Family History Breast Cancer Status:Active Comments:Mother. Father Status:Active Comments:In good health. Mother Status:Active Comments:In good health. Thyroid Cancer Status:Active Comments:Father. Breast Cancer Status:Active Comments:Mother. Father Status:Active Comments:In good health. Mother Status:Active Comments:In good health. Thyroid Cancer Status:Active Comments:Father. Breast Cancer Status:Active Comments:Mother. Father Status:Active Comments:In good health. Mother Status:Active Comments:In good health. Thyroid Cancer Status:Active Comments:Father. Summary Purpose Advance Directives No Advanced Directives Records Found Chief Complaint and Reason for Visit Chief Complaint Admit Date SELF REFERRED HERNIA- SELF PAY July 242024 2:55pm Reason for Visit Admit Date Umbilical hernia without obstruction and without gangrene August 12, 2025 2:55pm Additional Source Comments (unrecognized sect ion and content) No Status Records Found INFORMATION SOURCE (unrecogn ized section and content) DATE CREATED AUTHOR 08/20/2025 [facility] Care Teams (unrecognized sec tion and content) Team Status: Active Member Role/Relationship Status Dates Dr. Corbin Holcomb MD Primary care physician Activ e Team Status: Inactive Member Role/Relationship Status Dates Dr. Corbin Holcomb MD Primary care physician Activ e Start: August 12, 2025 End: August 12, 2025 Dr. Corbin Holcomb MD Referring Provider Active Start: August 12, 2025 End: August 12, 2025 Dr. Curtsi Gifford MD Attending physician Active Start: August 12, 2025 End: August 12, 2025 Team Status: Active Member Role/Relationship Status Dates Dr. Corbin Holcobm MD Primary care physician Activ e Start: August 12, 2025 Dr. Curtis Gifford MD Attending physician Active Start: August 12, 2025 Team Status: Inactive Member Role/Relationship Status Dates Dr. Corbin Holcomb MD Primary care physician Activ e Start: August 13, 2025 End: August 13, 2025 Dr. Curtis Gifford MD Attending physician Active Start: August 13, 2025 End: August 13, 2025 Dr. Curtis Gifford MD Referring Provider Active Start: August 13, 2025 End: August 13, 2025 Goals (unrecognized section and content) Goals may be documented in a n alternate section FOR RECORDS PERTAINING TO PATIENTS WHO ARE [...] BE BASED ON THE PRIMARY CLINICAL RECORDS. [employer] provides no warranty or guarantee of the accuracy or completeness of information in this document.
[2025-10-09] MEDS: Lactated Ringers 1,000 ML 15 ML IV (06:57)
--- NOTE | 2025-10-09 07:08 | PCM.PRE.AN2 ---
ASA Classification* ASA Classification ASA Classification: 1 Assessment & Plan Anesthesia* Anesthesia Assessment Anesthesia Assessment: Discussed sedation and/or anesthesia options, risks, benefits, and alternatives with patient/parents/legal guardian/POA. Questions invited. The patient/parents/legal guardian/POA seems to understand and agrees to proceed with anesthesia plan. Reviewed the physical assessment, medical history, allergy history and patient home medications list prior to surgery/procedure/anesthetic and documented any changes. Performed airway and anesthesia risk assessments. 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 When Was Last Pacemaker Check QUESTION #4 FULL TEXT: You/Your Family Experience fever (hyperthermia) with Anesthesia Last Oral Intake Last Oral intake: Last Oral Intake NPO since 00:00 10/09/25 06:54 Meds taken in AM with sips of No 10/09/25 06:54 water? Meds patient instructed to take am of surgery PONV PONV - inside sales representative: PONV - inside sales representative Female No 10/06/25 12:29 HX of Motion Sickness No 10/06/25 12:29 HX of N/V After Surgery No 10/06/25 12:29 Non-Smoker Yes 10/06/25 12:29 Duration of Surgery greater No 10/06/25 12:29 than 60 minutes Number of Risk Factors 1 10/06/25 12:29 PONV Score Low Risk 10/06/25 12:29 Height & Weight Height & Weight: Anesthesia: Height & Weight Height 5 ft 9 in 10/09/25 06:54 Weight: 79.5 kg 10/09/25 06:54 Body Mass Index (BMI) 25.9 10/09/25 06:54 Respiratory Assessment Respiratory Assessment - inside sales representative: Respiratory Tract Infection Hx - inside sales representative Hx Respiratory Tract Infection No 10/06/25 12:29 STOP Sleep Apnea STOP Sleep Apnea - inside sales representative: STOP Sleep Apnea - inside sales representative Hx Hypertension No 10/06/25 12:29 Hx Sleep Apnea No 10/06/25 12:29 CPAP BIPAP Do you snore loudly (louder No 10/06/25 12:29 than talking or can be heard Do you often feel tired/ Yes 10/06/25 12:29 fatigued/ sleepy during daytime? Has anyone observed you stop No 10/06/25 12:29 breathing during sleep? STOP Results Negative 10/06/25 12:29 QUESTION #5 FULL TEXT : Do you snore loudly (louder than talking or can be heard through closed doors)? 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 Specify any problems Hx of Preganancy in last 3 N/A 10/06/25 12:29 Months Nurse Filling Out Transfusion DSCHRIBER 10/06/25 12:29 & Questions: Date: 10/06/25 10/06/25 12:29 Time: 12:31 10/06/25 12:29 Patient unable to answer at this time (ie. confused, unrespo /Reproduction History /Reproductive History - inside sales representative: /Reproductive Hx- inside sales representative Hx Now No 10/06/25 12:29 Gestational Age (in weeks): EDC: Hx Hx Para Hx Section SAB No 10/06/25 12:29 Does the father of the baby or his family experience fever w Father of the baby Malignant Hypertension history comment Active Medications Active Medications: Current Medications Generic Name Dose Route Start Last Admin Trade Name Freq PRN Reason Stop Dose Admin Cefazolin Sodium 2 gm/ Sodium 110 mls @ 200 mls/hr 10/09/25 07:00 Chloride IV 10/09/25 07:32 INTRAOP ONE Lactated Ringer's 1,000 mls @ 15 mls/hr 10/09/25 06:15 10/09/25 06:57 IV 15 mls/hr .Q48H KATHE Administration PFSH Medical History Wears contact lenses Alcohol use Restless legs Non-smoker Partial traumatic amputation of finger through phalanx Home Medications ?Medication ?Instructions ?Recorded ?Last Taken ?Type apple cider vinegar 600 mg capsule 1,200 mg PO DAILY 08/12/25 10/08/25 History lactobacillus combination no.4 3 3,000 mmu cells PO QDAY 08/12/25 10/08/25 History billion cell capsule (Probiotic) multivitamin 1 tab PO QAM 08/12/25 10/08/25 History apple cider vinegar 600 mg capsule 600 mg PO QHS 10/06/25 10/08/25 History Allergy/AdvReac Type Severity Reaction Status Date / Time chlorhexidine (From AdvReac Intermediate Rash Verified 10/06/25 12:26 ChloraPrep Clear) isopropyl alcohol (From AdvReac Intermediate Rash Verified 10/06/25 12:26 ChloraPrep Clear) Social History Smoking Status: Never smoker alcohol intake: never substance use type: does not use Review of Systems (Anesthesia) ROS Narrative System reviewed and no additional complaints, except as documented.
--- NOTE | 2025-10-09 07:13 | PCM.HP.BLA ---
History and Physical Date of Admission: 10/09/25 Date of Service: 08/12/25 MR#: [id number] Acct: [id number] Name: NATTY DALY Rep #: [id number] : 1980 Provider: Dr. Curtis Gifford MD Age/Sex: 45/M Location: [facility] Status: Signed Intake Vital Signs 07/05/2416:11 08/12/2515:12 Height 5 ft 9 in 5 ft 9 in Weight: 177 lb BMI 26.1 BP 124/77 H Blood Pressure Location Rt brachial Position Sitting Respiration 16 Intake Visit Reasons: SELF REFERRED HERNIA- SELF PAY Chief Complaint: umb hernia Backup Sawyer Required: No Is patient in pain?: No Allergies No Known Allergies Allergy (Verified 08/12/25 15:13) Medications ?Medication ?Instructions ?Recorded ?Confirmed ?Type apple cider vinegar 600 mg capsule mg PO 08/12/25 08/12/25 History lactobacillus combination no.4 3 3,000 mmu cells PO QDAY 08/12/25 08/12/25 History billion cell capsule (Probiotic) multivitamin 1 tab PO QAM 08/12/25 08/12/25 History Have you fallen in the past year?: No PFSH Medical History (Updated 08/12/25 @ 16:[address] Curtis Gifford MD) Pre-op testing Partial traumatic amputation of finger through phalanx Environmental allergies Surgical History History of hand surgery Social History Smoking Status: Never smoker alcohol intake: never substance use type: does not use HPI HPI HPI: The patient is a 45-year-old male presenting for evaluation of an umbilical hernia. The patient reports noticing the hernia approximately 3 years ago, initially as a small bulge at the side of the umbilicus. Over the past 6 months, it has enlarged to fill the entire umbilicus. He denies any specific inciting event at onset and has no history of childhood hernia repair. He reports no pain, no changes in color, and no changes in bowel habits. The hernia is soft and reducible, with easier reduction in the mornings. He denies any history of staph or skin infections and has no history of tobacco use. 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 He has no prior abdominal surgeries. ROS General General: No weight change, appetite, fatigue, colon cancer, breast cancer or weakness HEENT HEENT: No difficulty swallowing, eye injury, eye surgery, swollen glands or hoarseness Endo Endocrine: No thyroid disease, diabetes mellitus, thyroid cancer, Hair loss, heat intolerance or cold intolerance Skin Skin: No rash or changing moles Breast Breast: No left breast lump, right breast lump, nipple discharge, breast pain, abnormal mammogram, abnormal US or breast enlargement Musc Musculoskeletal: No back problems, arthritis, rheumatoid arthritis, gout or joint pain Cardio Cardiovascular: No murmur, pacemaker, heart disease, atrial fibrillation, high blood pressure, heart attack, heart stent, palpitations, shortness of breath with exertion or chest pain Psych Psychiatric: No depression, anxiety or hearing voices Resp Respiratory: No shortness of breath, No sleep apnea, No cough, No COPD, No asthma, No emphysema and No wheezing Gastro Gastrointestinal: No abdominal pain, No nausea or vomiting, No diarrhea, No constipation, No blood in stool, No acid reflux, No hemorrhoids, No ulcers, No gallbladder problem and No black,tarry stools Simone Hematologic: No blood thinners, No blood disorders, No bleeding, No anemia and No blood clots Neuro Neurologic: No system reviewed and no additional complaints, except as documented, No as per HPI, No abnormal gait, No abnormal hearing, No abnormal movements, No abnormal speech, No behavioral changes, No burning sensations, No confusion, No convulsions, No disequilibrium, No dizziness, No localized weakness, No frequent falls, No headache(s), No lack of coordination, No loss of vision, No memory loss, No numbness, No other visual disturbances, No radicular pain, No restless legs, No sensory deficit, No syncope, No tingling, No tremor(s), No weakness and No other Exam Const General: cooperative Orientation: alert, awake and oriented x3 Resp Effort & Inspection: normal respiratory effort GI Other: Slender, no scars, visible hernia at the umbilicus with slight purpling of the umbilical skin. Hernia contents (likely omental fat) are soft and hernia is minimally tender with traction applied. It is eventually able to be reduced to a hernia neck approximately 1.5 cm diameter. Assessment and Plan Assessment and Plan (1) Umbilical hernia without obstruction and without gangrene: Status: Acute Comment: - Chronic umbilical hernia, present for approximately 3 years, with recent enlargement over the past 6 months; reducible on exam with a defect measuring approximately 2 cm in width and 1.5 cm in length. - No current signs of obstruction or gangrene; mild color change noted on exam suggestive of decreased perfusion to overlying tissue. - Discussed surgical repair options, including suture repair versus mesh repair; recommended robotic transabdominal preperitoneal (SHRUTHI) mesh repair due to defect size and patient's high physical activity level to minimize recurrence risk. - Reviewed risks and benefits of mesh repair, including infection, adhesion formation, and bowel obstruction; explained that synthetic mesh is preferred over biosynthetic due to lower recurrence rates. - Discussed postoperative restrictions: no lifting for 2 weeks, then maximum 15 lbs for 5 weeks; no heavy equipment operation or strenuous activity for at least 3 weeks; encouraged ambulation to reduce risk of blood clots. - Informed patient that surgery is typically outpatient with estimated operative time of 1.5 hours; use of transverse abdominus plane block for postoperative pain control. - Nasal swab to be performed preoperatively to assess for staph colonization; if positive, will initiate 5-day decolonization protocol with special wash and intranasal ointment. - Patient expressed understanding of surgical plan, risks, and postoperative restrictions; surgery to be scheduled mid to end of September to align with patient's availability and support at home. Plan: ? Tentatively plan for outpatient robot-assisted umbilical hernia repair with mesh early September ? Follow-up MRSA swab of nares I have examined the patient and the H&P has been reviewed. There are no clinical changes since date of exam. Details of the procedure as well as expected activity restrictions following were reviewed. Consents were confirmed. Questions were answered from patient and his spouse to their satisfaction. Proceed to the operating room for robot-assisted umbilical hernia repair with mesh.
[2025-10-09] MEDS: Midazolam 2 MG/2 ML Syringe IV (07:33)
[2025-10-09] MEDS: Cefazolin 1 GM/5 ML Vial 2 GM IV (07:34)
[2025-10-09] MEDS: Lidocaine 1% (5 ml sdv) 5 ML Vial IV (07:40)
[2025-10-09] MEDS: fentaNYL 100 MCG/2 ML Ampul 200 MCG IV (08:15)
[2025-10-09] MEDS: BUPIVACAINE LIPOSOME/PF 20 ML VIAL OPERA.SITE (09:03)
[2025-10-09] MEDS: 0.9% Normal Saline (Pres. free 10 ML Vial (09:03)
[2025-10-09] MEDS: Lactated Ringers 2,000 ML 2000 ML IV (09:15)
--- NOTE | 2025-10-09 09:59 | PCM.OPRPT ---
Operative Report (Standard) Operative Information Date of Procedure: 10/09/25 Pre-Operative Diagnosis: Umbilical hernia Post-Operative Diagnosis: Fat incarcerated umbilical hernia Surgery/Procedure Performed: Robot-assisted transabdominal preperitoneal umbilical hernia repair with mesh photographic equipment inspector: Yes Skin Pass Operator: Gela Watson Tasks completed by catalog library assistant: Opening & closing and Other (Material insertion) Type of Anesthesia: General/Supplemental RN Documented Start/Stop Times: Operation Date: 10/09/25 07:30 Case Time Into Pre-Op 10/09/25 06:10 Out of Pre-Op 10/09/25 07:28 Anesthesia Start 10/09/25 07:33 Into Room 10/09/25 07:33 Procedure Start 10/09/25 08:11 Procedure End 10/09/25 10:07 Anesthesia End 10/09/25 10:14 Out of Room 10/09/25 10:14 Into Recovery 10/09/25 10:16 Into Phase II Recovery 10/09/25 11:07 Out of Recovery 10/09/25 11:07 Procedure Start Time: 08:11 Procedure Stop Time: 10:07 Select all DRAINS/GRAFTS/IMPLANTS that apply: Implanted device (Bard soft mesh originally 15 x 15 cm cut to 8 x 10 cm) Implanted device details: Lot [id number], reference [id number] Estimated Blood Loss: 20 Specimen collected: No Description of surgery: After appropriate identification in the preoperative holding area, the patient was brought to the operating room suite where he was positioned supine the operating table. Preoperative antibiotics were administered. Patient was then induced with a general anesthetic. He was positioned on a roll and the table was flexed to try to maximize abdominal surface area for port placement. Patient's abdomen was prepped and draped in the usual sterile fashion. A formal timeout followed to confirm patient and procedure. Procedure was begun with a Veress entry at Sanders's point. Once the set point pressure was reached, this Veress needle was exchanged for an optical trocar and an optical entry was made in this location. Laparoscopic investigation revealed no inadvertent injury to the viscera below. It was noted that patient had a wall of adhesions between hernia contents and the omentum inferiorly. There was a slight gap in the adhesive curtain superiorly and this facilitated laparoscopic inspection of the contralateral abdominal wall. Through this opening laparoscopic visualization was provided for instillation of a transversus abdominis plane block with Exparel, bupivacaine, and injectable saline for a total volume of 100 mL. Two additional 8 mm robotic trocars were placed along the abdominal wall laterally with even spacing taking care to avoid the bony prominences of the costal margin and the ASIS. The robot was then brought in and docked in standard fashion. Robotically a peritoneal flap was raised approximately 2 cm medial from my trocars and carried this away towards the contralateral abdominal wall. Great care was taken to lower the peritoneum off of the posterior rectus sheath and avoid any rents in the peritoneal flap. Perforating vessels were sealed with bipolar energy to maintain hemostasis as this flap dissection proceeded. I then addressed the hernia directly by opening the scar tissue about the hernia sac and carefully applying manual traction downward until the hernia was fully reduced. A moderate amount of incarcerated fat was reduced with this process. The flap was then further dissected laterally until it appeared we had adequate width. A ruler was inserted and used to measure both the hernia defect as well as confirm adequate dissection for placement of the mesh. This measurement of the hernia defect found a 1.5 cm fascial defect and widely dissected flap to accommodate a 8 x 10 cm mesh. The hernia defect was closed with a #1 stratafix suture by running the fascial defect closed and then running the suture back upon itself. A 15 x 15 cm Bard soft mesh was cut down to requested 8 x 10 cm dimensions and was introduced into the peritoneum via a trocar. A 3-0 Vicryl suture was then used to loosely tacked the mesh in 4 quadrants against the abdominal wall. Lastly the peritoneum was closed with 3-0 V-Loc suture taking care to completely conceal the mesh and incorporated in several strategic bites to provide another point of fixation to maintain a flat lie. With the flap completely closed the peritoneal cavity was inspected and I again found a connection between patient's hernia contents, peritoneum, and the underlying omentum. I was concerned this posed a risk of creating a fixed post for bowel to wraparound in become a source for future small bowel obstruction. Therefore, I used monopolar scissors and limited bipolar energy to separate the anterior peritoneal structures from the underlying omentum and thinned out as I proceeded so as to ensure there was no bowel inadvertently incorporated in the soft tissue. This was done with minimal blood loss. Then needles and the inserted ruler were all removed under laparoscopic visualization and case counts were confirmed. The robot was then undocked and the trocars were removed. Additional local anesthetic was instilled and the port sites were closed with interrupted 4-0 Monocryl in subcuticular fashion. Steri-Strips and OpSite dressings were applied. Patient was transferred to PACU for ongoing care. Surgical Findings: ? Fusion between umbilical hernia and omentum minute opening superiorly?ultimately divided at the completion of the case ? 1.5 cm fascial defect Complications Complications: No Admit VTE Documentation VTE Mechan Device Prophylaxis: SCD's
--- NOTE | 2025-10-09 10:03 | EX.PCM.DISCH ---
Discharge Instructions Diet Discharge Diet: No restrictions Activity Discharge Activity: May Not Drive (While taking narcotic pain medication) and May Shower May shower in (days): 2 Ice area for (Minutes): 20 Lifting Restrictions: No lifting greater than 10 pounds for the next 5 weeks Dressing / Incision Call your doctor if your incision/area has: Continuous Slow Oozing, Increased Pain/ Swelling, Increased Redness, Foul Smelling Discharge and Swelling at the incision site Call your doctor if you observe: Fever of 101 or Higher, Inability to urinate and Inability to have a bowel movement Change Dressing in: 2 days (Please leave Steri-Strips intact until they fall off spontaneously or are taken off at your follow-up visit) Remove Dressing in: 2 days Cleanse incision/area with: Soap & Water and Keep Dressing Clean & Dry Follow Up Care Please Follow Up With: Curtis Gifford MD When: 10-14 days postop Test Results: Test results from this visit will be discussed in further detail at your follow-up appointment, if applicable. Discharge Plan Admission Primary Reason for Your Visit: Umbilical hernia repair Attending Provider: Curtis Gifford Primary Care Provider: Corbin Holcomb Instructions Print Language: [place] Discharge Orders/Prescriptions Prescriptions: New oxycodone 5 mg tablet 5 mg PO Q6H PRN (Reason: pain) 3 Days Qty: 10 0RF Continued multivitamin Tablet 1 tab PO QAM apple cider vinegar 600 mg capsule 1,200 mg PO DAILY Probiotic 3 billion cell capsule 3,000 mmu cells PO QDAY Rx Instructions: administer with a meal apple cider vinegar 600 mg capsule 600 mg PO QHS Referrals / Follow Up: Corbin Holcomb MD [Primary Care Provider, Family Practice] Disposition Disposition (needs filled in before D/C Order can be placed): Home, Self Care
--- NOTE | 2025-10-09 10:22 | PCM.POST.ANE ---
Anesthesia: Postop Eval I Current Vital Signs Temperature: 97.0 F Pulse Rate: 58 Blood Pressure: 115/79 Respiratory Rate: 16 Pulse Ox: 97 Oxygen Delivery Method: Room Air Assessment Airway patent: Yes Spontaneous unlabored respirations: Yes Mental status: Asleep nausea: No Vomiting: No Anesthesia Complication: No Fluid Hydration Crystalloid volume administer (ml): 1,500 Total IV fluid infused: 1,500 Progress Note Anesthesia document: Postop Eval 1 completed: Yes
--- NOTE | 2025-10-09 12:55 | POSTOPAN2_ITS ---
Anesthesia Postop Eval I Sum Postop Eval Completion status Anesthesia document: Postop Eval 1 completed: Yes Anesthesia Postop Eval I Summary Anesthesia Postop Eval I Summary: Anesthesia Postop Eval I: Assessment Summary Airway patent Yes 10/09/25 10:23 [email or web address] Spontaneous unlabored Yes 10/09/25 10:23 [email or web address] respirations Mental status Asleep 10/09/25 10:23 [email or web address] nausea No 10/09/25 10:23 [email or web address] [email or web address] Vomiting No 10/09/25 10:23 [email or web address] Anesthesia Postop Eval I: Fluid Summary Crystalloid volume administer 1,500 10/09/25 10:23 [email or web address] (ml) Colloids volume administered ( ml) Blood Product volume administered (ml) Total IV fluid infused 1,500 10/09/25 10:23 [email or web address] Anesthesia Postop Eval I: Summary Notes Anesthesia Complication No 10/09/25 10:23 [email or web address] Anesthesia Complication Comment: Post-operative progress note Anesthesia: Postop Eval II Evaluation Mental status: Awake and Calm Pain Level: 1 nausea: No Vomiting: No Complications Anesthesia Complication: No
--- NOTE | 2025-10-09 12:55 | PCM.POSTANE2 ---
Anesthesia Postop Eval I Sum Postop Eval Completion status Anesthesia document: Postop Eval 1 completed: Yes Anesthesia Postop Eval I Summary Anesthesia Postop Eval I Summary: Anesthesia Postop Eval I: Assessment Summary Airway patent Yes 10/09/25 10:23 [email or web address] Spontaneous unlabored Yes 10/09/25 10:23 [email or web address] respirations Mental status Asleep 10/09/25 10:23 [email or web address] nausea No 10/09/25 10:23 [email or web address] Vomiting No 10/09/25 10:23 [email or web address] Anesthesia Postop Eval I: Fluid Summary Crystalloid volume administer 1,500 10/09/25 10:23 [email or web address] (ml) Colloids volume administered ( ml) Blood Product volume administered (ml) Total IV fluid infused 1,500 10/09/25 10:23 [email or web address] Anesthesia Postop Eval I: Summary Notes Anesthesia Complication No 10/09/25 10:23 [email or web address] Anesthesia Complication Comment: Post-operative progress note Anesthesia: Postop Eval II Evaluation Mental status: Awake and Calm Pain Level: 1 nausea: No Vomiting: No Complications Anesthesia Complication: No
== END 2025-10-09 13:23 | disposition home or self-care (01) ==
LOC: SDC 06:06 → AC 06:06
PROVIDERS: PCP Family Medicine; Referring Provider Surgery; Visit Provider Surgery
PROC: 0WQF4ZZ Repair Abdominal Wall, Percutaneous Endoscopic Approach (ICD-10-PCS; CPT 49592; principal; 2025-10-09 07:10)
DX: K42.0 Umbilical hernia with obstruction, without gangrene (principal)
CPT/HCPCS: 49592; S2900; 00830; J0666; J2405